=== PATIENT | female | born 1965 | race Caucasian/White ===

== ENCOUNTER 2017-06-16 11:02 | Inpatient (IN) ==
[2017-06-16] MEDS ORDERED: Albuterol 2.5 MG/3 ML NEBULIZER IH ONE (11:21)
[2017-06-16] MEDS ORDERED: CeFAZolin Syr 2,000MG/20 ML 2,000 MG/20 ML SYRINGE IVPB ONE (11:21)
[2017-06-16] MEDS ORDERED: Vancomycin 1,000 MG in D5% in Water 250 ML IVPB ONE ×2 (11:21→23:30)
[2017-06-16] MEDS ORDERED: Vancomycin 1,250 MG in D5% in Water 250 ML IVPB ONE (11:27)
[2017-06-16] MEDS ORDERED: Plasma-Lyte A (PH 7.4) 1,000 ML IVC SCH (11:30)
--- NOTE | 2017-06-16 11:45 | Anesthesia Evaluation PreOp ---
Date of Encounter: 06/16/17 Time of Encounter: 11:40 - Past History Planned Operation: Femoral to Femoral Bypas Graft Cardiac History: HTN, Hyperlipidemia, Other (PVD last dose Plavix yesterday 2229 ) Pulmonary History: Smoker PRESIDENTIAL SUPPORT SPECIALIST History: Denies Any Significant HX Other Medical History: GERD Anesthesia History: No Prior Anesthetic Complications, Past Anesthesia (Rt Endarterectomy, Fem Stent Placement) Alcohol Use: none Drug use: none Medications and Allergies Cholecalciferol (Vitamin D3) [Vitamin D3] 2,000 unit PO DAILY 11/26/15 [History] Clopidogrel [Plavix] 75 mg PO DAILY #30 tablet 01/09/16 [Rx] HYDROcodone/Acet 5/325 mg [[place] 5-325 mg] 1 - 2 tab PO Q4H PRN #40 tablet 01/08 [Rx] Clopidogrel [Plavix] 75 mg PO DAILY #21 tablet 06/08/17 [Rx] 3 Allergy/AdvReac Type Severity Reaction Status Date / Time No Known Allergies Allergy Verified 11/26/15 06:44 - Meds/Allergy Pre-op Review Medications Reviewed: Yes Allergies Reviewed: Yes Beta Blockers on Current Med List: No Anesthesia Results - Labs Laboratory Tests 06/08/17 06/08/17 06/08/17 15:28 15:28 15:28 Hgb 14.5 Hct 43.1 Plt Count 249 PT 9.8 INR 0.9 APTT 28.4 Sodium 139 Potassium 4.3 BUN 18 Creatinine 0.89 - Imaging EKG: report reviewed (SR with Arrhythmia) Anesthesia Exam O2 Sat Height 1.6 m Height 1.6 m Height 1.6 m Weight 74.843 kg Weight 74.843 kg Weight 74.843 kg O2 Sat by Pulse Oximetry 97 Vital Signs Temp Pulse Resp BP Pulse Ox 98.2 F 78 18 161/80 97 06/16/17 11:21 06/16/17 11:21 06/16/17 11:21 06/16/17 11:21 06/16/17 11:21 Height: 5'3 Weight: 165 lbs NPO (# of Hours): MN Pain Scale: 0 - HEENT Pupil (Motor): Pupils equal, EOMI Mallampati: II Denture Type: Upper: Complete Oral Opening: Less than or equal to 3 - PRESIDENTIAL SUPPORT SPECIALIST LOC: Oriented PRESIDENTIAL SUPPORT SPECIALIST Motor: Normal RUE, Normal LUE, Normal RLE, Normal LLE, Normal Face PRESIDENTIAL SUPPORT SPECIALIST Sensory: Normal: RUE, LUE, RLE, LLE, Face - Cardiac Rhythm: Regular Murmur: None JVD: No Carotid Bruit: No - Pulmonary Breath Sounds: bilateral Clear Respiratory Effort: Symmetrical Anesthesia Assess/Plan ASA Score: 3 (PVD HTN Tobacco) Modified [place] Scale for Level of Consciousness: Cooperative, oriented, and tranquil Anesthetic Plan: General Monitoring Plan: Standard Monitors Recovery Plan: PACU (Discussed GA, agrees to proceed)
--- NOTE | 2017-06-16 12:37 | History & Physical Report ---
Date of Encounter: 06/16/17 Time of Encounter: 12:25 24 Hour HP Update - Instructions Instructions: If the History and Physical is less than 30 days old and was completed prior to A.M. admission and or procedure and has NOT been updated on calendar day of procedure please complete this update prior to performing procedure. - Update Patient reports changes in Medical Condition: No Changes in examination, assessment, or condition: No Changes in Medication: No Preop tests/diagnostics Reviewed: Yes Surgery Remains Indicated: Yes Consent for Planned Operative Procedure(s) Verified: Yes - Pre-Operative Checklist Preoperative Checklist Indicated: No Prophylactic Antibiotic Ordered: Yes (Vancomycin due to MRSA risk)
[2017-06-16] MEDS ORDERED: Heparin 1,000 UNITS/500 mL NS 1,000 ML ONE (12:52)
[2017-06-16] MEDS ORDERED: *HR* FentaNYL (PF) 100 MCG/2 ML VIAL ONE (12:52)
[2017-06-16] MEDS ORDERED: *HR* Propofol 200 MG/20 ML VIAL IVP ONE (12:52)
[2017-06-16] MEDS ORDERED: *HR* Midazolam HCl 2 MG/2 ML VIAL ONE (12:52)
[2017-06-16] MEDS ORDERED: Vancomycin 1,000 MG VIAL ONE (12:52)
[2017-06-16] MEDS ORDERED: *HR* HYDROmorphone 2 MG/ML SYRINGE ONE (14:11)
[2017-06-16] MEDS ORDERED: *HR* Succinylcholine 200 MG/10 ML VIAL IVP ONE (14:17)
[2017-06-16] MEDS ORDERED: *HR* Rocuronium Bromide 50 MG/5 ML VIAL ONE (14:17)
[2017-06-16] MEDS ORDERED: Lidocaine -MPF 2% 2 ML VIAL ONE (14:17)
[2017-06-16] MEDS ORDERED: Dexamethasone 4 MG/ML VIAL ONE (14:17)
[2017-06-16] MEDS ORDERED: Ondansetron 4 MG/2 ML VIAL ONE (14:17)
[2017-06-16] MEDS ORDERED: *HR* Heparin 5,000 UNIT/ML VIAL ONE ×2 (14:17→15:24)
[2017-06-16] MEDS ORDERED: Lidocaine -MPF 4% 5 ML AMPUL ONE (14:18)
[2017-06-16] MEDS ORDERED: Acetaminophen IV 1,000 MG/100 ML INFUS..BTL ONE (14:23)
[2017-06-16] MEDS ORDERED: *HR* Metoprolol 5 MG/5 ML VIAL IVP ONE (14:25)
[2017-06-16] MEDS ORDERED: Ondansetron 4 MG/2 ML VIAL IVP ONE (15:35)
[2017-06-16] MEDS ORDERED: *HR* Promethazine 25 MG/ML VIAL IVP PRN (15:35)
[2017-06-16] MEDS ORDERED: *HR* HYDROmorphone (PF) 1 MG/ML SYRINGE IVP PRN (15:35)
[2017-06-16] MEDS ORDERED: *HR* Labetalol 20 MG/4 ML SYRINGE IVP PRN ×2 (15:35→17:26)
[2017-06-16] MEDS ORDERED: *HR* Meperidine 25 MG/ML SYRINGE IVP PRN (15:35)
[2017-06-16] MEDS ORDERED: *HR* FentaNYL (PF) 100 MCG/2 ML VIAL IVP PRN (15:35)
[2017-06-16] MEDS ORDERED: Naloxone 0.4 MG/ML INJ IVP PRN ×2 (15:35→17:26)
[2017-06-16] MEDS ORDERED: Ringers Solution, Lactated 1,000 ML IVC SCH (15:45)
[2017-06-16] MEDS ORDERED: Neostigmine Methylsulfate 3 MG/3 ML SYRINGE ONE (15:58)
--- NOTE | 2017-06-16 17:19 | Anesthesia Evaluation Post Op ---
Date of Encounter: 06/16/17 Time of Encounter: 15:15 - Vital Signs Vital Signs: Vital Signs/O2 Sat, Most Current Temp Pulse Resp BP Pulse Ox 98.6 F 75 16 155/72 94 06/16/17 17:04 06/16/17 17:04 06/16/17 17:04 06/16/17 17:04 06/16/17 17:04 - Lungs Lungs: Clear Ascult./Percussion - Airway Airway: Non-obstructed - Cardiovascular Regular Rate, Baseline Rhythm - Mental Status Mental Status: Alert & Oriented, Answers Appropriately - Pain Pain Scale: 0 - Nausea Vomiting Nausea Vomiting: Not Present - Hydration Hydration: Ice chips, Saenz catheter - Discharge PostOp Status: Transfer Patient to floor
[2017-06-16] MEDS ORDERED: *HR* HYDROcodone/Acet 5/325 mg TABLET PO PRN (17:26)
[2017-06-16] MEDS ORDERED: Ondansetron 4 MG/2 ML VIAL IVP PRN (17:26)
[2017-06-16] MEDS ORDERED: *HR* Morphine 2 MG/ML SYRINGE IVP PRN (17:26)
[2017-06-16] MEDS ORDERED: Acetaminophen 325 MG TABLET PO PRN (17:26)
--- NOTE | 2017-06-16 17:35 | Operative Note ---
Date of procedure: 06/16/17 Pre-op diagnosis: Peripheral vascular disease with disabling claudication Post-op diagnosis: same Procedure: Left femoral to right femoral artery bypass with 6mm PTFE graft. 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 She previously underwent stent placement, but has presented with a prolonged chronic occlusion of her stent. Revascularization was recommended for symptomatic relief. Procedure: The patient was identified in the preoperative area. The risks, benefits, and alternatives of the procedure were discussed. All questions were answered. The patient was taken to the operating room and placed in supine position on the operating room table. After the induction of general endotracheal anesthesia, he was cleaned and draped in normal sterile fashion. An oblique incision was made through the prior scar over the right groin sharply. Hemostasis was obtained with electrocautery. Through a process of blunt, sharp, and electrocautery dissection, the right femoral vessels were dissected circumferentially and surrounded with vessel loops. An oblique incision was then made over the left groin sharply. Hemostasis was obtained with electrocautery. Through a process of blunt, sharp, and electrocautery dissection, the left femoral vessels were dissected circumferentially and surrounded with vessel loops. A graft was tunneled between the right and left femoral incisions. The patient received 5000 units of heparin intravenously. The graft was sutured in place with a running 6-0 Prolene. The vessels were flushed through the graft. Heparinized saline was infused into the graft lumen. The graft was clamped with an atraumatic clamp. Flow was restored in the right femoral vessels. Tension was applied to the left femoral artery vessel loops. An arteriotomy was made in the left common femoral artery and the graft was cut to fit the defect. The graft was anastamosed with a running 6-0 Prolene. Prior to completing the anastamosis, the left femoral vessels were flushed through the graft anastamosis and heparin was infused into the lumen. The anastamosis was completed and flow was restored in the left lower extremity. Thrombin and gelfoam were used at the proximal anastamosis. Polyphasic signals were noted distal to the anastamoses. The wounds were irrigated with antibiotic-containing saline. Platelet rich and platelet poor plasma were infused into the wounds. Meticulous hemostasis was obtained throughout the wound with electrocautery. Wounds were reapproximated with layers of 2-0 and 3-0 Vicryl. Skin was reapproximated with 3-0 Monocryl. Sterile dressing was applied. The patient was extubated and taken to recovery room in stable condition.
[2017-06-16] MEDS ORDERED: *HR* Heparin 5,000 UNIT/ML VIAL SQ SCH (18:00)
[2017-06-16] MEDS: *HR* Heparin 5,000 UNIT/ML VIAL SQ SCH (18:25)
[2017-06-16] MEDS: *HR* Metoprolol 5 MG/5 ML VIAL IVP SCH (18:28)
[2017-06-16] MEDS ORDERED: CeFAZolin Premix DUPLEX 2,000 MG/50 ML BAG IVPB SCH (19:30)
[2017-06-16] MEDS: *HR* OxyCODONE Immed Rel 5 MG TABLET PO PRN (20:20)
[2017-06-16] MEDS ORDERED: Vancomycin 0 MG in D5% in Water 250 ML IVPB ONE (23:30)
[2017-06-17] MEDS: *HR* Metoprolol 5 MG/5 ML VIAL IVP SCH ×2 (00:31→06:14)
[2017-06-17] MEDS: *HR* OxyCODONE Immed Rel 5 MG TABLET PO PRN (02:22)
[2017-06-17 04:00] LABS: Basophils % 0.2 %; Hemoglobin 12.8 g/dL (11.5-15.4); Immature Granulocytes % 0.7 % (0-4); Lymphocytes # 2.5 K/mcL (0.6-4.6); Lymphocytes % 12.4 %; Mean Corpuscular HGB Conc 32.8 g/dL (31.6-35.5); Mean Corpuscular Hemoglobin 28.9 pg (28.0-33.3); Mean Platelet Volume 10.9 fL (9.4-12.4); Monocytes # 1.2 K/mcL (0.0-1.3); Monocytes % 5.8 %; Neutrophils # 16.3 K/mcL (1.6-8.9); Platelet Count 252 K/mcL (140-400); Red Blood Count 4.43 M/mcL (3.82-4.97); Red Cell Distribution Width 13.4 % (11.5-14.5); Segmented Neutrophils % 80.9 %
[2017-06-17] MEDS ORDERED: CeFAZolin Premix DUPLEX 2,000 MG/50 ML BAG IVPB SCH (04:00)
[2017-06-17 04:18] LABS: BUN/Creatinine Ratio 17 (6-26); Blood Urea Nitrogen 16 mg/dL (7-20); Calcium 8.6 mg/dL (8.6-10.8); Carbon Dioxide 23 mEq/L (19-29); Chloride 106 mEq/L (98-109); Glucose 133 mg/dL (70-99); Osmolality,Calculated 285 (280-300); Potassium 4.3 mEq/L (3.5-4.5); Sodium 136 mEq/L (136-145); eGFR For African Americans > 60 (> 60); eGFR For Non-African Americans > 60 (> 60)
[2017-06-17] MEDS: *HR* Heparin 5,000 UNIT/ML VIAL SQ SCH (06:14)
[2017-06-17 06:48] VITALS: BP 149/73
--- NOTE | 2017-06-17 07:45 | Discharge Summary ---
Date of Encounter: 06/17/17 Time of Encounter: 08:00 - Discharge Diagnosis (1) Atherosclerosis with limb claudication Priority: Primary Status: Chronic Comments: The patient is postoeprative day #1 after a left to right femoral to femoral artery bypass. Her symptoms have resolved. Her incisions are healing and she has polyphasic pedal pulses. She will be discharged today. (2) Essential hypertension Priority: Secondary Status: Chronic (3) Mixed hyperlipidemia Priority: Secondary Status: Chronic (4) Tobacco abuse Priority: Secondary Status: Chronic - Discharge Medications Prescriptions: OxyCODONE/APAP 5/325 [Percocet 5/325 MG] 1 each PO Q6HR PRN #20 tablet PRN Reason: POSTOPERATIVE PAIN Home Medications: Cholecalciferol (Vitamin D3) [Vitamin D3] 2,000 unit PO DAILY 11/26/15 [History] Clopidogrel [Plavix] 75 mg PO DAILY #30 tablet 01/09/16 [Rx] Aspirin [Lo-Dose Aspirin EC] 81 mg PO DAILY 06/16/17 [History] OxyCODONE/APAP 5/325 [Percocet 5/325 MG] 1 each PO Q6HR PRN #20 tablet 06/17/17 [Rx] Allergies/Adverse Reactions: 3 Allergy/AdvReac Type Severity Reaction Status Date / Time No Known Allergies Allergy Verified 06/16/17 12:17 Date of admission: 06/16/17 17:14 Primary care physician: Rasheed Ruffin Procedure(s) Performed: Left to right femoral to femoral artery bypass. Discharging clinician: Thien Zhu Anticipated date of discharge: 06/17/17 - Patient Status Disposition: Home, Self-Care Condition: Good Functional capacity at discharge: independent ambulation Overall status at discharge: patient is back to baseline - Discharge Instructions Instructions: Oxycodone/Acetaminophen (By mouth) Follow Up With: Thien Zhu MD [Partnered Physician] - 07/13/17 2:30 pm Rasheed Ruffin DO [Primary Care Provider] - 07/08/17 3:00 pm - Diet and Activity Activity: increase activity as tolerated Diet: advance to your usual diet - Hospital Course Hospital course: Ms. Walton is a 52 year old female with a history of peripheral vascular disease. She underwent a femoral to femoral artery bypass and tolerated the procedure well. She was discharged on postoperative day #1 in stable condition without complications. Time spent discussing smoking cessation with patient: 3 to 10 minutes - Time Spent with Patient Total time spent providing and/or coordinating discharge services: Exam Vital Signs, Last 4 Hours Temp Pulse Resp BP Pulse Ox 06/17/17 07:36 63 06/17/17 06:45 98.6 F 70 10 149/73 91 General: Present: Conversant, No Apparent Distress Cardiac: Present: Reg Rate and Rhythm Lungs: Present: Normal Breath Sounds Neuro: Present: Alert and responsive, No focal deficits noted, Motor nerves grossly intact, Sensory nerves grossly intact Vascular: Present: Normal capillary refill, Pulse, normal, Surgical incisions ( clean, dry and intact without heamtoma or erythema). Absent: Cyanosis, Edema Skin: Present: No rashes noted on visualized skin - VTE Documentation of Mechanical Device: Intermittent pneumatic compression device
[2017-06-17] MEDS ORDERED: Cholecalciferol (D-3) 1,000 UNIT TABLET PO SCH (09:00)
[2017-06-17] MEDS ORDERED: Aspirin Enteric Coated 81 MG Tablet PO SCH (09:00)
== END 2017-06-17 11:26 | disposition home or self-care (01) | DRG 254 ==
LOC: SAMDAY 11:02 → 2NNU 17:14
PROVIDERS: ADMIT Surgery; ATTEND Surgery
PROC: VASFFBG (ICD-10-PCS; 2017-06-16 12:35)

== ENCOUNTER 2018-09-01 07:23 | Inpatient (IN) ==
[~2018-09-01 07:23] MED LIST: Vancomycin 1,000 MG, Sodium Chloride IRRigation 1,000 ML IR ONE
--- NOTE | 2018-09-01 07:40 | History & Physical Report ---
Date of Encounter: 09/01/18 Time of Encounter: 07:38 24 Hour HP Update - Instructions Instructions: If the History and Physical is less than 30 days old and was completed prior to A.M. admission and or procedure and has NOT been updated on calendar day of procedure please complete this update prior to performing procedure. - Update Patient reports changes in Medical Condition: No Changes in examination, assessment, or condition: No Changes in Medication: No Preop tests/diagnostics Reviewed: Yes Surgery Remains Indicated: Yes Consent for Planned Operative Procedure(s) Verified: Yes - Pre-Operative Checklist Prophylactic Antibiotic Ordered: Yes (vancomycin due to MRSA risk) Home Medications Include Beta Paola: No Beta Paola Taken Today (Day of Surgery): No Beta Paola Taken Yesterday (Day Prior to Surgery): No Is VTE Prophylaxis Indicated?: Yes
[2018-09-01] MEDS ORDERED: Albuterol 2.5 MG/3 ML NEBULIZER IH ONE (07:51)
[2018-09-01] MEDS ORDERED: CeFAZolin Syr 2,000MG/20 ML 2,000 MG/20 ML SYRINGE IVPB ONE (07:51)
[2018-09-01] MEDS ORDERED: Albuterol 2.5 MG/3 ML NEBULIZER ONE (07:56)
[2018-09-01] MEDS ORDERED: Ringers Solution, Lactated 1,000 ML IVC SCH (08:00)
--- NOTE | 2018-09-01 08:16 | Anesthesia Evaluation PreOp ---
Date of Encounter: 09/01/18 Time of Encounter: 08:17 - Past History Planned Operation: L iliac stent, L femoral endarterectomy Cardiac History: HTN, Hyperlipidemia, Other (PVD) Pulmonary History: Smoker (2 ppd) Other Medical History: GERD Anesthesia History: No Prior Anesthetic Complications, Past Anesthesia (fem-fem bypass 07/2018 easy airway) : No Alcohol Use: none Drug use: none Medications and Allergies Cholecalciferol (Vitamin D3) [Vitamin D3] 2,000 unit PO DAILY 11/26/15 [History] Clopidogrel [Plavix] 75 mg PO DAILY #30 tablet 01/09/16 [Rx] Aspirin [Lo-Dose Aspirin EC] 81 mg PO DAILY 06/16/17 [History] OxyCODONE/APAP 5/325 [Percocet 5/325 MG] 1 each PO Q6HR PRN #20 tablet 06/17/17 [Rx] Allergy/AdvReac Type Severity Reaction Status Date / Time No Known Allergies Allergy Verified 06/16/17 12:17 - Meds/Allergy Pre-op Review Medications Reviewed: Yes Allergies Reviewed: Yes Beta Blockers on Current Med List: No Anesthesia Results - Labs Laboratory Tests 08/21/18 08/21/18 08/21/18 11:01 11:01 11:01 WBC 14.7 H Hgb 14.7 Hct 44.4 Plt Count 224 PT 10.7 INR 1.0 APTT 33.0 Sodium 138 Potassium 4.3 Chloride 107 Carbon Dioxide 27 BUN 11 Creatinine 0.78 Est GFR (Non-Af Amer) > 60 - Imaging EKG: report reviewed Additional studies: IMPRESSION: Occluded right common iliac artery stent. 90% stenosis of the distal left common iliac artery Tight stenosis of the proximal left superficial femoral artery proximal to the femoral femoral bypass graft which arises off the left superficial femoral artery beyond the tight stenosis. Suboptimal visualization of the runoff vessels in the left leg below the knee Anesthesia Exam Weight: 72 kg NPO (# of Hours): > 8 hr - HEENT Pupil (Motor): Pupils equal Mallampati: II Teeth: Edentulous Oral Opening: Greater than 3 - CLAIM CLERK LOC: Oriented CLAIM CLERK Motor: Normal RUE, Normal LUE, Normal RLE, Normal LLE, Normal Face CLAIM CLERK Sensory: Normal: RUE, LUE, RLE, LLE, Face - Cardiac Rhythm: Regular Murmur: None - Pulmonary Breath Sounds: bilateral Clear Respiratory Effort: Symmetrical Anesthesia Assess/Plan ASA Score: 3 (HTN, PVD) Level of consciousness: Cooperative, Oriented Anesthetic Plan: General Monitoring Plan: Standard Monitors Recovery Plan: PACU
[2018-09-01] MEDS ORDERED: *HR* Promethazine 25 MG/ML VIAL IVP PRN (08:20)
[2018-09-01] MEDS ORDERED: *HR* HYDROmorphone (PF) 1 MG/ML SYRINGE IVP PRN (08:20)
[2018-09-01] MEDS ORDERED: Ondansetron 4 MG/2 ML VIAL IVP ONE (08:20)
[2018-09-01] MEDS ORDERED: Acetaminophen IV 1,000 MG/100 ML INFUS..BTL IVPB ONE (08:20)
[2018-09-01] MEDS ORDERED: Famotidine 20 MG/2 ML VIAL IVP ONE (08:20)
[2018-09-01] MEDS ORDERED: *HR* OxyCODONE Immed Rel 5 MG TABLET PO PRN (08:20)
[2018-09-01] MEDS ORDERED: *HR* Midazolam HCl 2 MG/2 ML VIAL ONE (08:26)
[2018-09-01] MEDS ORDERED: Ondansetron 4 MG/2 ML VIAL ONE (08:26)
[2018-09-01] MEDS ORDERED: Lidocaine -MPF 4% 5 ML AMPUL ONE (08:26)
[2018-09-01] MEDS ORDERED: *HR* Propofol 200 MG/20 ML VIAL IVP ONE (08:26)
[2018-09-01] MEDS ORDERED: *HR* Succinylcholine 200 MG/10 ML VIAL IVP ONE (08:26)
[2018-09-01] MEDS ORDERED: *HR* FentaNYL (PF) 100 MCG/2 ML VIAL ONE (08:26)
[2018-09-01] MEDS ORDERED: Lidocaine -MPF 2% 2 ML VIAL ONE (08:26)
[2018-09-01] MEDS ORDERED: Dexamethasone 4 MG/ML VIAL ONE (08:26)
[2018-09-01] MEDS ORDERED: *HR* Heparin 5,000 UNIT/ML VIAL ONE ×2 (08:29→10:55)
[2018-09-01] MEDS ORDERED: *HR* Remifentanil 2 MG VIAL IVP ONE (08:32)
[2018-09-01] MEDS ORDERED: *HR* Phenylephrine 10 MG/ML VIAL ONE (08:32)
[2018-09-01] MEDS ORDERED: Bupivacaine-MPF 0.25% 10 ML VIAL ONE (09:16)
[2018-09-01] MEDS ORDERED: Heparin 1,000 UNITS/500 mL 1,000 ML ONE (09:16)
[2018-09-01] MEDS ORDERED: Isovue-300 50 ML VIAL ONE (10:13)
--- NOTE | 2018-09-01 12:27 | Operative Note ---
Date of procedure: 09/01/18 Pre-op diagnosis: Vascular disease with disabling claudication Post-op diagnosis: same Procedure: 1. Left iliac angiogram with Left common iliac artery 7 x 27 mm stent placement. 3. Left common femoral artery and superficial femoral artery endarterectomy w ith Hemashield patch angioplasty. Complications: None Anesthesia: GETA Surgeon: Thien Zhu Was there an information technology assistant present: No Estimated blood loss (cc): 50 Specimen: None Condition: stable Disposition: PACU Procedure in Detail: Indications: The patient is a 53-year-old female with a history of peripheral vascular disease with disabling claudication. She has previously undergone a femoral to femoral artery bypass. She also has a history of hypertension and tobacco abuse. The patient presented with disabling recurrent claudication of the bilateral lower extremity. Imaging revealed iliac artery stenosis as well as stenosis proximal to her femoral to femoral artery bypass graft within the common femoral artery. Revascularization was recommended to alleviate her symptoms. Procedure: An oblique incision was made over the left groin through her previous scar sharply. Hemostasis was obtained with electrocautery. Through a process of blunt, sharp, and electrocautery dissection, the left femoral vessels were dissected circumferentially and surrounded with vessel loops. The proximal limb of the femoral to femoral artery bypass graft was dissected circumferentially and surrounded with a vessel loop as well. The patient received 5000 units of intravenous heparin. After waiting adequate time for the heparin to circulate a longitudinal incision was made through the luis of the bypass graft and extended into the [place] femoral artery. A [place] wire was advanced into the aorta through the femoral arteriotomy. A 6-Italian sheath was advanced over the wire. The introducer was removed and a left iliac angiogram was performed this revealed a distal left common iliac artery stenosis. A 7 x 27 mm stent was advanced across the stenosis and deployed. A completion angiogram revealed resolution of the stenosis. The wire and sheath were removed. The vessels flushed with heparinized saline and then occluded. Using a dental freer, a left distal common and proximal superficial femoral artery endarterectomy was performed. Proximal and distal endpoints were inspected and no elevated flaps were noted. The lumen was flushed with heparinized saline. A Hemashield patch was cut to fit the defect and sutured in place with a running 6-0 Prolene. Prior to completing the patch repair, each vessel and the bypass graft limbs were flushed separately. Heparinized saline was infused into the lumen. The patch was completed and flow was restored. Polyphasic signals were noted in the superficial femoral artery distal to the patch, the proximal bypass graft limb and the deep femoral artery. Thrombin and Gelfoam were used to aid in hemostasis. Meticulous hemostasis was obtained with electrocautery. Polyphasic signal was noted distal to the distal end of the patch as well as in the deep and superficial femoral arteries. The wound was irrigated with antibiotic-containing saline. Platelet-rich and platelet-poor plasma were infused into the wound. The wounds were reapproximated with layer of 2-0 Vicryl followed by three layers of 3-0 Vicryl and 3-0 Monocryl in the subcuticular layer. Atserile dressing was applied. The patient was extubated and taken to recovery room in stable condition.
--- NOTE | 2018-09-01 12:35 | Anesthesia Evaluation Post Op ---
Date of Encounter: 09/01/18 Time of Encounter: 12:30 - Vital Signs Vital Signs: Vital Signs/O2 Sat, Most Current Temp Pulse Resp BP Pulse Ox 98.8 F 89 16 165/82 95 09/01/18 12:33 09/01/18 12:33 09/01/18 12:33 09/01/18 12:33 09/01/18 12:33 - Lungs Lungs: Clear Ascult./Percussion - Airway Airway: Non-obstructed - Cardiovascular Regular Rate - Mental Status Mental Status: Alert & Oriented, Answers Appropriately - Pain Pain Scale: 0 Pain Scale used: Numeric (1 - 10) - Nausea Vomiting Nausea Vomiting: Not Present - Hydration Hydration: Ice chips - Discharge PostOp Status: Transfer Patient to floor
[2018-09-01] MEDS ORDERED: 0.9 % Sodium Chloride 1,000 ML IVC SCH (12:48)
[2018-09-01] MEDS ORDERED: Acetaminophen 325 MG TABLET PO PRN (12:48)
[2018-09-01] MEDS ORDERED: *HR* Labetalol 20 MG/4 ML SYRINGE IVP PRN (12:48)
[2018-09-01] MEDS ORDERED: *HR* HYDROcodone/Acet 5/325 mg TABLET PO PRN (12:48)
[2018-09-01] MEDS ORDERED: OXYCODONE Oral CONC 10 MG/0.5 ML ORAL.SYG SL PRN ×2 (12:48)
[2018-09-01] MEDS ORDERED: Ondansetron 4 MG/2 ML VIAL IVP PRN (12:48)
[2018-09-01] MEDS ORDERED: Naloxone 0.4 MG/ML INJ IVP PRN (12:48)
--- NOTE | 2018-09-01 13:08 | Discharge Summary ---
Orders not resulted at time of discharge: Pending orders 09/02/18 04:00 Basic Metabolic Panel AM 0400 Complete Blood Count [HEME] AM 0400 Date of Encounter: 09/01/18 - Hospital Course Hospital course: Ms. Walton is a 53 year old female - Time Spent with Patient Total time spent providing and/or coordinating discharge services: - Discharge Medications Prescriptions: OxyCODONE/APAP 5/325 [Percocet 5/325 MG] 1 each PO Q6HR PRN 5 Days #20 tablet PRN Reason: Postoperative pain Clopidogrel [Plavix] 75 mg PO DAILY #30 tablet Home Medications: Aspirin [Lo-Dose Aspirin EC] 81 mg PO DAILY 06/16/17 [History] Albuterol Sulfate [Proair Hfa] 1 puff IH DAILY 09/01/18 [History] Brompheniramine/Pseudoephed/Dm [Bromfed Dm Cough Syrup] 118 ml PO DAILY 09/01/18 [History] Cefdinir [Omnicef] 300 mg PO DAILY 09/01/18 [History] Clopidogrel [Plavix] 75 mg PO DAILY #30 tablet 09/01/18 [Rx] OxyCODONE/APAP 5/325 [Percocet 5/325 MG] 1 each PO Q6HR PRN 5 Days #20 tablet 09/01/18 [Rx] Allergies/Adverse Reactions: Allergy/AdvReac Type Severity Reaction Status Date / Time No Known Allergies Allergy Verified 06/16/17 12:17 Date of admission: 09/01/18 12:34 Primary care physician: Rasheed Ruffin Exam Vital Signs, Last 4 Hours Temp Pulse Resp BP Pulse Ox 09/01/18 12:56 97.5 F L 86 16 150/75 94 09/01/18 12:45 83 150/75 09/01/18 12:33 98.8 F 89 16 165/82 95 09/01/18 12:23 86 16 158/77 94 09/01/18 12:13 89 16 164/80 96 09/01/18 12:03 98.9 F 98 18 165/71 100 - Discharge Instructions Follow Up With: Thien Zhu MD [Partnered Physician] - 09/26/18 2:30 pm Rasheed Ruffin DO [Primary Care Provider] - 09/06/18 8:45 am
[2018-09-01] MEDS: *HR* OxyCODONE Immed Rel 5 MG TABLET PO PRN ×2 (13:46→17:53)
[2018-09-01] MEDS: *HR* Metoprolol 5 MG/5 ML VIAL IVP SCH ×2 (17:53→23:31)
[2018-09-02 05:32] LABS: Basophils % 0.2 %; Eosinophils % 0.1 %; Hematocrit 39.5 % (35.3-44.9); Hemoglobin 12.9 g/dL (11.5-15.4); Immature Granulocytes % 0.6 % (0-4); Lymphocytes # 3.4 K/mcL (0.6-4.6); Mean Corpuscular HGB Conc 32.7 g/dL (31.6-35.5); Mean Corpuscular Hemoglobin 28.7 pg (28.0-33.3); Mean Corpuscular Volume 87.8 fL (83.0-100.0); Mean Platelet Volume 10.7 fL (9.4-12.4); Monocytes # 1.2 K/mcL (0.0-1.3); Monocytes % 5.8 %; Platelet Count 233 K/mcL (140-400); Red Cell Distribution Width 13.4 % (11.5-14.5); Segmented Neutrophils % 76.3 %
[2018-09-02] MEDS: *HR* Metoprolol 5 MG/5 ML VIAL IVP SCH ×2 (05:48→12:22)
[2018-09-02 05:52] LABS: BUN/Creatinine Ratio 20 (6-26); Blood Urea Nitrogen 15 mg/dL (6-20); Calcium 8.8 mg/dL (8.6-10.3); Carbon Dioxide 22 mEq/L (23-29); Chloride 110 mEq/L (98-107); Glucose 108 mg/dL (70-105); Osmolality,Calculated 285 (280-300); Potassium 4.3 mEq/L (3.5-5.1); Sodium 137 mEq/L (136-145); eGFR For Non-African Americans > 60 (> 60)
[2018-09-02] MEDS ORDERED: *HR* Heparin 5,000 UNIT/ML VIAL SQ SCH ×2 (06:00)
[2018-09-02] MEDS ORDERED: Cefdinir 300 MG CAPSULE PO SCH (09:00)
[2018-09-02] MEDS ORDERED: Aspirin Enteric Coated 81 MG Tablet PO SCH (09:00)
[2018-09-02] MEDS ORDERED: [UNRECOGNIZED DRUG - OTHER] PO SCH (09:00)
[2018-09-02 13:39] VITALS: BP 153/66
--- NOTE | 2018-09-02 15:00 | Vascular/[facility] Progress Note ---
Date of Encounter: 09/02/18 Time of Encounter: 14:58 - Assessment and plan (1) Atherosclerosis with limb claudication Current Visit: No Status: Chronic Status post left iliac artery stenting, left femoral artery endarterectomy. The surgical wound is dry. She has no hematoma. The femoral femoral bypass is patent. Heart size and Warm. She Has No Compartment Syndrome. Her Foot Is Warm and Well-Perfused. The Patient Is to Be Discharged Home. She Has Prescription for Pain Medication. She Is to Take Aspirin. She Is to Follow up with Dr. Zhu in 7-10 Days. - Subjective Interval history: Status post left iliac artery stenting, left femoral endarterectomy was patched. She is known to have a cross femoral bypass. She is very happy with the outcome of her procedure. She denies any pain in her left calf or foot noted she is ambulatory. Her pain is controlled. Vital Signs, Last 4 Hours Temp Pulse Resp BP Pulse Ox 09/02/18 12:05 97.9 F 77 15 153/66 94 - Physical Examination General: Present: No Apparent Distress HEENT: Present: Pupils equal Cardiac: Present: Reg Rate and Rhythm, Normal S1 and S2, No Murmur Lungs: Present: Normal Breath Sounds, No Wheeze, Rales, Rhonchi Neuro: Present: Alert and responsive Vascular: Present: Normal capillary refill, Pulse, diminished, Pulse, normal, Color/Temperature, Surgical incisions Abdomen: Present: Soft Skin: Present: No rashes noted on visualized skin Results 09/02/18 04:59 09/02/18 04:59 Lab Results, Last 24 hours 09/02/18 09/02/18 04:59 04:59 WBC 19.7 H Hgb 12.9 Hct 39.5 Plt Count 233 Sodium 137 Potassium 4.3 Chloride 110 H Carbon Dioxide 22 L BUN 15 Creatinine 0.74 Glucose 108 H Calcium 8.8 Consult Discharge Plan - Plan Instructions: Oxycodone/Acetaminophen (By mouth), Clopidogrel (By mouth) Referrals: Thien Zhu MD [Partnered Physician] - 09/26/18 2:30 pm Rasheed Ruffin DO [Primary Care Provider] - 09/06/18 8:45 am Prescriptions: OxyCODONE/APAP 5/325 [Percocet 5/325 MG] 1 each PO Q6HR PRN 5 Days #20 tablet PRN Reason: Postoperative pain Clopidogrel [Plavix] 75 mg PO DAILY #30 tablet
== END 2018-09-02 15:44 | disposition home or self-care (01) | DRG 254 ==
LOC: SAMDAY 07:23 → 2NNU 12:34
PROVIDERS: ADMIT Surgery; ATTEND Surgery

== ENCOUNTER 2021-05-08 12:28 | Inpatient (IN) ==
[2021-05-08] MEDS ORDERED: CeFAZolin Syr 2,000MG/20 ML 2,000 MG/20 ML SYRINGE IVPB ONE (13:03)
[2021-05-08] MEDS ORDERED: Ringers Solution, Lactated 1,000 ML IVC SCH (13:15)
[2021-05-08] MEDS ORDERED: Famotidine 20 MG/2 ML VIAL IVP ONE (13:28)
[2021-05-08] MEDS ORDERED: Acetaminophen IV 1,000 MG/100 ML BAG IVPB ONE (13:29)
[2021-05-08] MEDS ORDERED: *HR* Rocuronium Bromide 50 MG/5 ML VIAL ONE (13:49)
[2021-05-08] MEDS ORDERED: Lidocaine -MPF 2% 5 ML VIAL ONE (13:49)
[2021-05-08] MEDS ORDERED: Ondansetron 4 MG/2 ML VIAL ONE (13:49)
[2021-05-08] MEDS ORDERED: Sugammadex Sodium 200 MG/2 ML VIAL IV ONE ×2 (13:52→17:04)
[2021-05-08] MEDS ORDERED: *HR* Labetalol 20 MG/4 ML SYRINGE IVP ONE (13:54)
[2021-05-08] MEDS ORDERED: *HR* HYDROmorphone PF 0.5 MG/0.5 ML SYRINGE IVP PRN (13:59)
[2021-05-08] MEDS ORDERED: Ondansetron 4 MG/2 ML VIAL IVP PRN ×2 (13:59→18:07)
[2021-05-08] MEDS ORDERED: *HR* Norepinephrine 4 MG/4 ML VIAL IVC ONE (14:15)
[2021-05-08] MEDS ORDERED: *HR* Vasopressin 20 UNIT/ML VIAL ONE (14:15)
[2021-05-08] MEDS ORDERED: *HR* Propofol 200 MG/20 ML VIAL IVP ONE (14:15)
[2021-05-08] MEDS ORDERED: Lidocaine HCL 4 ML Topical Solution (Laryng-O-Jet Kit Sterile Pak) TP ONE (14:16)
[2021-05-08] MEDS ORDERED: *HR* FentaNYL (PF) 100 MCG/2 ML VIAL ONE ×2 (14:17→16:10)
[2021-05-08] MEDS ORDERED: *HR* Midazolam HCl 2 MG/2 ML VIAL ONE (14:17)
[2021-05-08] MEDS ORDERED: Bupivacaine-MPF 0.25% 10 ML VIAL ONE (14:20)
[2021-05-08] MEDS ORDERED: Heparin 1,000 UNITS/500 mL 500 ML ONE (14:20)
[2021-05-08] MEDS ORDERED: Isovue-300 50ML VIAL ONE (14:28)
[2021-05-08] MEDS ORDERED: EPHEDrine 50 MG/ML VIAL ONE (15:45)
[2021-05-08] MEDS ORDERED: *HR* OxyCODONE Immed Rel 5 MG TABLET PO PRN (18:07)
[2021-05-08] MEDS ORDERED: Naloxone 0.4 MG/ML INJ IVP PRN (18:07)
[2021-05-08] MEDS ORDERED: 0.9 % Sodium Chloride 1,000 ML IVC SCH (18:07)
[2021-05-08] MEDS ORDERED: *HR* HYDROcodone/Acet 5/325 mg TABLET PO PRN (18:07)
[2021-05-08] MEDS ORDERED: Acetaminophen 325 MG TABLET PO PRN (18:07)
[2021-05-08] MEDS ORDERED: *HR* Metoprolol 5 MG/5 ML VIAL IVP SCH (18:07)
[2021-05-08 18:15] VITALS: TEMP 97.6
[2021-05-08 18:51] VITALS: O2SAT 96
[2021-05-08 20:44] VITALS: BP 158/69; PULSE 57
[2021-05-08] MEDS ORDERED: CeFAZolin 2 GM/120 ML BAG IVPB SCH (23:00)
[2021-05-09] MEDS ORDERED: *HR* Heparin 5,000 UNIT/ML VIAL SQ SCH ×2 (06:00)
== END 2021-05-08 21:48 | disposition home or self-care (01) | DRG 272 ==
LOC: SAMDAY 12:28 → 2NNU 18:01
PROVIDERS: ADMIT Surgery; ATTEND Surgery

== ENCOUNTER 2022-01-13 10:47 | Inpatient (IN) ==
[2022-01-13] MEDS ORDERED: CeFAZolin Syr 2,000MG/20 ML 2,000 MG/20 ML SYRINGE IVPB ONE (11:20)
[2022-01-13] MEDS ORDERED: Ringers Solution, Lactated 1,000 ML IVC SCH (11:30)
[2022-01-13] MEDS ORDERED: Ondansetron 4 MG/2 ML VIAL IVP PRN ×2 (11:45→18:09)
[2022-01-13] MEDS ORDERED: *HR* OxyCODONE Immed Rel 5 MG TABLET PO PRN ×2 (11:45→18:09)
[2022-01-13] MEDS ORDERED: *HR* FentaNYL (PF) 100 MCG/2 ML VIAL ONE (12:27)
[2022-01-13] MEDS ORDERED: *HR* Midazolam HCl 2 MG/2 ML VIAL ONE (12:28)
[2022-01-13] MEDS ORDERED: Lidocaine -MPF 2% 2 ML VIAL ONE (12:29)
[2022-01-13] MEDS ORDERED: *HR* Propofol 200 MG/20 ML VIAL IVP ONE (12:29)
[2022-01-13] MEDS ORDERED: *HR* Rocuronium Bromide 50 MG/5 ML VIAL ONE ×2 (12:29→16:09)
[2022-01-13] MEDS ORDERED: Vancomycin 1,000 MG, Sodium Chloride IRRigation 1,000 ML IR ONE (12:30)
[2022-01-13] MEDS ORDERED: Vancomycin 1,000 MG VIAL ONE (12:31)
[2022-01-13] MEDS ORDERED: Bupivacaine-MPF 0.25% 10 ML VIAL ONE (12:31)
[2022-01-13] MEDS ORDERED: Heparin 1,000 UNITS/500 mL 1,000 ML ONE (12:31)
[2022-01-13] MEDS ORDERED: Lidocaine HCL 4 ML Topical Solution (Laryng-O-Jet Kit Sterile Pak) TP ONE (12:32)
[2022-01-13] MEDS ORDERED: Heparin 1,000 UNITS/500 mL 500 ML ONE (12:34)
[2022-01-13] MEDS ORDERED: Acetaminophen IV 1,000 MG/100 ML BAG IVPB ONE ×2 (13:45→13:52)
[2022-01-13] MEDS ORDERED: Ondansetron 4 MG/2 ML VIAL ONE (13:52)
[2022-01-13] MEDS ORDERED: Ketamine HCL *QUVA* 50mg (1mL) SYRINGE ONE (14:05)
[2022-01-13] MEDS ORDERED: *HR* Heparin 5,000 UNIT/ML VIAL ONE (14:16)
[2022-01-13 14:47] LABS: ABG Base Excess -4 mEq/L (-2 to 3); ABG Chloride 111 mEq/L (98-107); ABG Glucose 67 mg/dL (60-95); ABG HCO3 21 mEq/L (21-27); ABG Ionized Calcium 0.85 mmol/L (1.15-1.35); ABG Oxygen Saturation 100 % (95-98); ABG PCO2 35 mmHg (35-45); ABG PH 7.38 pH Units (7.32-7.45); ABG PO2 234 mmHg (85-104); ABG TCO2 22 mEq/L (20-26)
[2022-01-13] MEDS ORDERED: *HR* Dextrose 50 % in Water (Vial) 50 ML VIAL ONE (15:09)
[2022-01-13] MEDS ORDERED: *HR* HYDROMORPHONE 2 MG/ML VIAL ONE (16:10)
[2022-01-13] MEDS ORDERED: Ketorolac 30 MG/ML VIAL ONE (16:15)
[2022-01-13] MEDS ORDERED: Sugammadex Sodium 200 MG/2 ML VIAL IV ONE (16:15)
[2022-01-13] MEDS ORDERED: *HR* Labetalol 20 MG/4 ML SYRINGE IVP ONE (16:39)
[2022-01-13] MEDS: *HR* HYDROmorphone PF 0.5 MG/0.5 ML SYRINGE IVP PRN ×3 (17:18→17:32)
[2022-01-13] MEDS ORDERED: *HR* Labetalol 20 MG/4 ML SYRINGE IVP PRN (18:09)
[2022-01-13] MEDS ORDERED: Naloxone 0.4 MG/ML INJ IVP PRN (18:09)
[2022-01-13] MEDS ORDERED: Acetaminophen 325 MG TABLET PO PRN (18:09)
[2022-01-13] MEDS ORDERED: *HR* HYDROcodone/Acet 5/325 mg TABLET PO PRN (18:09)
[2022-01-13] MEDS ORDERED: 0.9 % Sodium Chloride 1,000 ML ONE (18:11)
[2022-01-13] MEDS: *HR* Metoprolol 5 MG/5 ML VIAL IVP SCH (18:50)
[2022-01-13] MEDS: 0.9 % Sodium Chloride 1,000 ML IVC SCH (18:50)
[2022-01-13] MEDS: CeFAZolin 2 GM/120 ML BAG IVPB SCH (21:20)
[2022-01-14] MEDS: *HR* Metoprolol 5 MG/5 ML VIAL IVP SCH ×4 (00:55→17:58)
[2022-01-14 05:24] LABS: BUN/Creatinine Ratio 29 (6-26); Blood Urea Nitrogen 20 mg/dL (6-20); Calcium 8.8 mg/dL (8.6-10.3); Carbon Dioxide 24 mEq/L (23-29); Chloride 110 mEq/L (98-107); Glucose 107 mg/dL (70-105); Osmolality,Calculated 295 (280-300); Potassium 3.9 mEq/L (3.5-5.1); Sodium 141 mEq/L (136-145); eGFR For African Americans > 60 (> 60); eGFR For Non-African Americans > 60 (> 60)
[2022-01-14 05:26] LABS: Basophils % 0.2 %; Hematocrit 34.4 % (35.3-44.9); Hemoglobin 11.3 g/dL (11.5-15.4); Immature Granulocytes % 0.4 % (0-4); Lymphocytes # 2.1 K/mcL (0.6-4.6); Lymphocytes % 12.8 %; Mean Corpuscular HGB Conc 32.8 g/dL (31.6-35.5); Mean Corpuscular Hemoglobin 30.1 pg (28.0-33.3); Mean Corpuscular Volume 91.7 fL (83.0-100.0); Mean Platelet Volume 11.4 fL (9.4-12.4); Monocytes # 1.5 K/mcL (0.0-1.3); Monocytes % 9.2 %; Neutrophils # 12.7 K/mcL (1.6-8.9); Platelet Count 218 K/mcL (140-400); Red Blood Count 3.75 M/mcL (3.82-4.97); Segmented Neutrophils % 77.4 %; White Blood Count 16.5 K/mcL (4.3-11.1)
[2022-01-14] MEDS ORDERED: *HR* Heparin 5,000 UNIT/ML VIAL SQ SCH (06:00)
[2022-01-14] MEDS: *HR* Heparin 5,000 UNIT/ML VIAL SQ SCH ×2 (06:32→17:57)
[2022-01-14] MEDS: CeFAZolin 2 GM/120 ML BAG IVPB SCH (06:33)
[2022-01-14] MEDS: 0.9 % Sodium Chloride 1,000 ML IVC SCH ×2 (07:53→20:02)
[2022-01-14] MEDS: Ketorolac 30 MG/ML VIAL IVP SCH ×2 (10:36→19:58)
[2022-01-14] MEDS: Aspirin Enteric Coated 81 MG Tablet PO SCH (10:41)
[2022-01-15] MEDS: *HR* Metoprolol 5 MG/5 ML VIAL IVP SCH ×5 (00:05→23:01)
[2022-01-15] MEDS: Ketorolac 30 MG/ML VIAL IVP SCH ×5 (01:22→23:03)
[2022-01-15] MEDS: *HR* Heparin 5,000 UNIT/ML VIAL SQ SCH ×2 (06:08→17:50)
[2022-01-15] MEDS: Aspirin Enteric Coated 81 MG Tablet PO SCH (08:01)
[2022-01-15] MEDS: 0.9 % Sodium Chloride 1,000 ML IVC SCH ×2 (08:04→23:00)
[2022-01-15] MEDS ORDERED: *HR* Dextrose 50 % in Water (Syg) 50 ML SYRINGE ONE (11:57)
[2022-01-15 13:48] LABS: Basophils # 0.1 K/mcL (0.0-0.2); Basophils % 0.4 %; Eosinophils # 0.1 K/mcL (0.0-0.6); Eosinophils % 0.8 %; Hematocrit 28.6 % (35.3-44.9); Immature Granulocytes % 0.5 % (0-4); Lymphocytes # 3.3 K/mcL (0.6-4.6); Lymphocytes % 25.1 %; Mean Corpuscular HGB Conc 33.2 g/dL (31.6-35.5); Mean Corpuscular Hemoglobin 30.4 pg (28.0-33.3); Mean Corpuscular Volume 91.7 fL (83.0-100.0); Mean Platelet Volume 11.3 fL (9.4-12.4); Monocytes % 7.4 %; Neutrophils # 8.7 K/mcL (1.6-8.9); Platelet Count 186 K/mcL (140-400); Red Blood Count 3.12 M/mcL (3.82-4.97); Red Cell Distribution Width 14.3 % (11.5-14.5); Segmented Neutrophils % 65.8 %; White Blood Count 13.3 K/mcL (4.3-11.1)
[2022-01-15 13:51] LABS: Hemoglobin 9.5 g/dL (11.5-15.4)
[2022-01-15 14:06] LABS: BUN/Creatinine Ratio 37 (6-26); Blood Urea Nitrogen 22 mg/dL (6-20); Calcium 8.5 mg/dL (8.6-10.3); Carbon Dioxide 23 mEq/L (23-29); Chloride 116 mEq/L (98-107); Glucose 77 mg/dL (70-105); Osmolality,Calculated 294 (280-300); Potassium 3.4 mEq/L (3.5-5.1); Sodium 141 mEq/L (136-145); eGFR For African Americans > 60 (> 60); eGFR For Non-African Americans > 60 (> 60)
[2022-01-16 05:35] LABS: Basophils # 0.1 K/mcL (0.0-0.2); Basophils % 0.5 %; Eosinophils # 0.3 K/mcL (0.0-0.6); Eosinophils % 2.8 %; Hematocrit 28.9 % (35.3-44.9); Hemoglobin 9.4 g/dL (11.5-15.4); Immature Granulocytes % 0.4 % (0-4); Lymphocytes # 3.1 K/mcL (0.6-4.6); Mean Corpuscular HGB Conc 32.5 g/dL (31.6-35.5); Mean Corpuscular Hemoglobin 29.7 pg (28.0-33.3); Mean Corpuscular Volume 91.2 fL (83.0-100.0); Mean Platelet Volume 11.4 fL (9.4-12.4); Monocytes # 0.9 K/mcL (0.0-1.3); Monocytes % 8.2 %; Neutrophils # 6.9 K/mcL (1.6-8.9); Platelet Count 196 K/mcL (140-400); Red Blood Count 3.17 M/mcL (3.82-4.97); Red Cell Distribution Width 14.1 % (11.5-14.5); Segmented Neutrophils % 61.1 %; White Blood Count 11.3 K/mcL (4.3-11.1)
[2022-01-16 05:51] LABS: Alanine Aminotransferase 8 Units/L (7-52); Albumin 3.3 g/dL (3.5-5.7); Albumin/Globulin Ratio 1.7 (1.1-2.2); Alkaline Phosphatase 61 Units/L (34-104); Aspartate Amino Transferase 20 Units/L (13-39); BUN/Creatinine Ratio 33 (6-26); Bilirubin,Total 0.7 mg/dL (0.3-1.0); Blood Urea Nitrogen 21 mg/dL (6-20); Calcium 8.8 mg/dL (8.6-10.3); Carbon Dioxide 23 mEq/L (23-29); Chloride 110 mEq/L (98-107); Globulin 1.9 g/dL (2.4-3.5); Glucose 72 mg/dL (70-105); Osmolality,Calculated 292 (280-300); Potassium 3.6 mEq/L (3.5-5.1); Sodium 140 mEq/L (136-145); Total Protein 5.2 g/dL (6.4-8.9); eGFR For African Americans > 60 (> 60); eGFR For Non-African Americans > 60 (> 60)
[2022-01-16] MEDS: *HR* Metoprolol 5 MG/5 ML VIAL IVP SCH ×3 (05:59→18:46)
[2022-01-16] MEDS: *HR* Heparin 5,000 UNIT/ML VIAL SQ SCH ×2 (06:00→18:09)
[2022-01-16] MEDS: Ketorolac 30 MG/ML VIAL IVP SCH ×3 (06:00→19:20)
[2022-01-16] MEDS: Aspirin Enteric Coated 81 MG Tablet PO SCH (09:15)
[2022-01-16] MEDS: 0.9 % Sodium Chloride 1,000 ML IVC SCH (11:15)
[2022-01-16 15:16] VITALS: BP 135/56; TEMP 97.8; O2SAT 97
[2022-01-16 18:12] VITALS: PULSE 78
== END 2022-01-16 19:42 | disposition home or self-care (01) | DRG 357 ==
LOC: SAMDAY 10:47 → 2NNU 11:48
PROVIDERS: ADMIT Surgery; ATTEND Surgery